=== PATIENT | female | born 1990 | race Caucasian/White ===

== ENCOUNTER 2020-07-13 08:49 | Inpatient (IN) | payer OTHER ==
[2020-07-13 09:52] VITALS: BMI 16.8
[2020-07-13] MEDS ORDERED: chlordiazePOXIDE HCL 25 MG CAPSULE PO PRN (12:11)
[2020-07-13] MEDS ORDERED: MENTHOL/PHENOL 1 EACH UD MM PRN (12:11)
[2020-07-13] MEDS ORDERED: MAGNESIUM CITRATE 300 ML BOTTLE PO PRN (12:11)
[2020-07-13] MEDS ORDERED: BISMUTH SUBSALICYLATE 262 MG/15 ML BTL PO PRN (12:11)
[2020-07-13] MEDS ORDERED: MAG HYDROX/AL HYDROX/SIMETH 30 ML UNIT-DOSE CUP PO PRN (12:11)
[2020-07-13] MEDS ORDERED: ACETAMINOPHEN 325 MG TABLET (FP) PO PRN (12:11)
[2020-07-13] MEDS ORDERED: NICOTINE POLACRILEX 2 MG GUM BUC PRN (12:11)
[2020-07-13] MEDS ORDERED: ONDANSETRON *ODT* 4 MG TABLET SL PRN (12:11)
[2020-07-13] MEDS ORDERED: MAGNESIUM HYDROX 2400MG/30ML ORAL SUSPENSION 30 ML CUP PO PRN (12:11)
[2020-07-13] MEDS ORDERED: ALBUTEROL SO4 HFA INHALER IH PRN (12:13)
[2020-07-13] MEDS: NICOTINE 21 MG/24 HOURS TOPICAL PATCH TD SCH (12:47)
[2020-07-13] MEDS: hydrOXYzine PAMOATE 25 MG CAPSULE (FP) PO SCH ×3 (13:09→22:06)
[2020-07-13 14:42] LABS: POTASSIUM 3.9 mmol/L (3.5-5.1)
[2020-07-13 14:47] LABS: ALBUMIN 3.7 g/dl (3.4-5.0); BLOOD UREA NITROGEN 6.7 mg/dL (7-18); CALCIUM 9.3 mg/dL (8.5-10.1)
[2020-07-13 14:49] LABS: CREATININE 0.6 mg/dL (0.55-1.3)
[2020-07-13 14:51] LABS: BILIRUBIN,TOTAL 0.4 mg/dL (0.2-1); TOT PROT 7.8 g/dl (6.4-8.2)
[2020-07-13 15:00] LABS: HEMATOCRIT 39.2 % (32.4-45.2); HEMOGLOBIN 12.8 GM/dL (10.7-15.3); MCH 29.4 pg (25.7-33.7); MCHC 32.7 g/dl (32.0-36.0); MEAN CELL VOLUME 89.9 fl (80-96); MEAN PLT VOLUME 8.1 fl (7.5-11.1); PLATELET COUNT 303 K/MM3 (134-434); RBC 4.36 M/mm3 (3.60-5.2); RDW 13.5 % (11.6-15.6); WHITE BLOOD COUNT 9.6 K/mm3 (4.0-10.0)
[2020-07-13] MEDS: chlordiazePOXIDE HCL 25 MG CAPSULE PO SCH ×2 (17:33→22:06)
[2020-07-13] MEDS: MELATONIN 5 MG TABLETS PO SCH (22:05)
[2020-07-13] MEDS: THIAMINE HCL 100 MG TABLET (FP) PO SCH (22:06)
[2020-07-14] MEDS ORDERED: MASKS NR ONE (05:24)
[2020-07-14] MEDS: hydrOXYzine PAMOATE 25 MG CAPSULE (FP) PO SCH ×5 (06:29→22:26)
[2020-07-14] MEDS: chlordiazePOXIDE HCL 25 MG CAPSULE PO SCH (06:29)
[2020-07-14] MEDS ORDERED: METHADONE HCL 10 MG TABLET ONE (09:24)
[2020-07-14] MEDS ORDERED: METHADONE HCL 40 MG DISPERSABLE TABLET ONE (09:25)
[2020-07-14] MEDS ORDERED: METHADONE HCL 40 MG DISPERSABLE TABLET PO SCH (10:00)
[2020-07-14] MEDS ORDERED: METHADONE 160 MG, METHADONE 10 MG PO SCH (10:00)
[2020-07-14] MEDS: NICOTINE 21 MG/24 HOURS TOPICAL PATCH TD SCH (10:47)
[2020-07-14] MEDS: PRENATAL VITAMINS W/ FOLIC ACID TABLET (FP) PO SCH (10:47)
[2020-07-14] MEDS: diazePAM 5 MG TABLET PO SCH ×3 (10:48→22:23)
[2020-07-14] MEDS: ACETAMINOPHEN 325 MG TABLET (FP) PO PRN ×2 (10:50→22:24)
[2020-07-14] MEDS: diazePAM 5 MG TABLET PO PRN (13:14)
[2020-07-14] MEDS: THIAMINE HCL 100 MG TABLET (FP) PO SCH (22:23)
[2020-07-14] MEDS: MELATONIN 5 MG TABLETS PO SCH (22:26)
[2020-07-15] MEDS ORDERED: METHADONE HCL 10 MG TABLET ONE ×2 (04:10→08:48)
[2020-07-15] MEDS ORDERED: METHADONE HCL 40 MG DISPERSABLE TABLET ONE ×2 (04:11→08:49)
[2020-07-15] MEDS ORDERED: chlordiazePOXIDE HCL 25 MG CAPSULE PO SCH (05:00)
[2020-07-15] MEDS: diazePAM 5 MG TABLET PO SCH ×4 (05:34→22:35)
[2020-07-15] MEDS: hydrOXYzine PAMOATE 25 MG CAPSULE (FP) PO SCH ×5 (05:34→22:38)
[2020-07-15] MEDS: METHADONE 160 MG, METHADONE 10 MG PO SCH (05:35)
[2020-07-15] MEDS ORDERED: METHADONE HCL 10 MG TABLET PO SCH (06:00)
[2020-07-15] MEDS ORDERED: METHADONE HCL 10 MG TABLET PO ONE (07:18)
[2020-07-15] MEDS ORDERED: METHADONE 160 MG, METHADONE 10 MG PO ONE (08:15)
[2020-07-15] MEDS: diazePAM 5 MG TABLET PO PRN ×2 (08:55→13:33)
[2020-07-15] MEDS: METHOCARBAMOL 500 MG TABLET PO PRN (09:23)
[2020-07-15] MEDS: PRENATAL VITAMINS W/ FOLIC ACID TABLET (FP) PO SCH (10:21)
[2020-07-15] MEDS: NICOTINE 21 MG/24 HOURS TOPICAL PATCH TD SCH (10:21)
[2020-07-15] MEDS: diazePAM 5 MG TABLET PO ONE (17:42)
[2020-07-15] MEDS: MELATONIN 5 MG TABLETS PO SCH (22:36)
[2020-07-15] MEDS: THIAMINE HCL 100 MG TABLET (FP) PO SCH (22:36)
[2020-07-16] MEDS ORDERED: chlordiazePOXIDE HCL 10 MG CAPSULE PO PRN
[2020-07-16] MEDS: diazePAM 5 MG TABLET PO PRN ×2 (00:54→09:10)
[2020-07-16] MEDS ORDERED: METHADONE HCL 10 MG TABLET ONE (04:05)
[2020-07-16] MEDS ORDERED: METHADONE HCL 40 MG DISPERSABLE TABLET ONE (04:06)
[2020-07-16] MEDS ORDERED: chlordiazePOXIDE HCL 10 MG CAPSULE PO SCH (05:00)
[2020-07-16] MEDS: diazePAM 5 MG TABLET PO SCH ×3 (06:18→22:26)
[2020-07-16] MEDS: METHADONE 160 MG, METHADONE 10 MG PO SCH (06:19)
[2020-07-16] MEDS: hydrOXYzine PAMOATE 25 MG CAPSULE (FP) PO SCH ×3 (06:19→14:22)
[2020-07-16] MEDS: ACETAMINOPHEN 325 MG TABLET (FP) PO PRN (06:21)
[2020-07-16] MEDS: METHOCARBAMOL 500 MG TABLET PO PRN ×2 (11:27→22:26)
[2020-07-16] MEDS: NICOTINE 21 MG/24 HOURS TOPICAL PATCH TD SCH (13:12)
[2020-07-16] MEDS: PRENATAL VITAMINS W/ FOLIC ACID TABLET (FP) PO SCH (14:18)
[2020-07-16] MEDS: MELATONIN 5 MG TABLETS PO SCH (22:26)
[2020-07-16] MEDS: THIAMINE HCL 100 MG TABLET (FP) PO SCH (22:26)
[2020-07-16] MEDS: IBUPROFEN 400 MG TABLET (FP) PO PRN (22:29)
[2020-07-17] MEDS ORDERED: METHADONE HCL 10 MG TABLET ONE (04:32)
[2020-07-17] MEDS ORDERED: METHADONE HCL 40 MG DISPERSABLE TABLET ONE (04:33)
[2020-07-17] MEDS ORDERED: chlordiazePOXIDE HCL 10 MG CAPSULE PO SCH (05:00)
[2020-07-17] MEDS: METHADONE 160 MG, METHADONE 10 MG PO SCH (05:56)
[2020-07-17] MEDS: diazePAM 5 MG TABLET PO SCH ×2 (05:58→17:42)
[2020-07-17] MEDS: diazePAM 5 MG TABLET PO PRN (09:13)
[2020-07-17] MEDS: NICOTINE 21 MG/24 HOURS TOPICAL PATCH TD SCH (09:16)
[2020-07-17] MEDS: PRENATAL VITAMINS W/ FOLIC ACID TABLET (FP) PO SCH (09:17)
[2020-07-17] MEDS: METHOCARBAMOL 500 MG TABLET PO PRN ×2 (09:17→17:41)
[2020-07-17] MEDS: IBUPROFEN 400 MG TABLET (FP) PO PRN ×2 (09:19→17:42)
[2020-07-17] MEDS: hydrOXYzine PAMOATE 25 MG CAPSULE (FP) PO PRN ×2 (12:42→22:42)
[2020-07-17] MEDS: THIAMINE HCL 100 MG TABLET (FP) PO SCH (22:45)
[2020-07-17] MEDS: MELATONIN 5 MG TABLETS PO SCH (22:45)
[2020-07-18] MEDS ORDERED: METHADONE HCL 10 MG TABLET ONE (04:22)
[2020-07-18] MEDS ORDERED: METHADONE HCL 40 MG DISPERSABLE TABLET ONE (04:22)
[2020-07-18] MEDS ORDERED: chlordiazePOXIDE HCL 10 MG CAPSULE PO ONE (05:00)
[2020-07-18] MEDS: METHADONE 160 MG, METHADONE 10 MG PO SCH (05:21)
[2020-07-18] MEDS: diazePAM 5 MG TABLET PO ONE (05:21)
[2020-07-18] MEDS: METHOCARBAMOL 500 MG TABLET PO PRN (05:22)
[2020-07-18 10:05] VITALS: BP 101/60; PULSE 65; TEMP 97.3
[2020-07-18] MEDS: NICOTINE 21 MG/24 HOURS TOPICAL PATCH TD SCH (10:06)
[2020-07-18] MEDS: PRENATAL VITAMINS W/ FOLIC ACID TABLET (FP) PO SCH (10:06)
== END 2020-07-18 12:26 | disposition other institution (70) | DRG 773 ==
LOC: YASAS 08:49 → Y6N 09:58
PROVIDERS: ADMIT Allergy & Immunology; ATTEND Allergy & Immunology
PROC: HZ2ZZZZ Detoxification Services for Substance Abuse Treatment (ICD-10-PCS; principal; 2020-07-13)
DX: F10.230 Alcohol dependence with withdrawal, uncomplicated (principal); F11.20 Opioid dependence, uncomplicated; F14.20 Cocaine dependence, uncomplicated; F13.20 Sedative, hypnotic or anxiolytic dependence, uncomplicated; F17.213 Nicotine dependence, cigarettes, with withdrawal; J45.909 Unspecified asthma, uncomplicated; Z86.19 Personal history of other infectious and parasitic diseases
CPT/HCPCS: 36415; 80053; 81025; 85027; 86780; 93005; 93010; C9803; U0003

== ENCOUNTER 2020-07-18 11:29 | Inpatient (IN) | payer OTHER ==
[2020-07-18] MEDS ORDERED: MENTHOL/PHENOL 1 EACH UD MM PRN (13:26)
[2020-07-18] MEDS ORDERED: hydrOXYzine PAMOATE 25 MG CAPSULE (FP) PO PRN (13:26)
[2020-07-18] MEDS ORDERED: MAGNESIUM HYDROX 2400MG/30ML ORAL SUSPENSION 30 ML CUP PO PRN (13:26)
[2020-07-18] MEDS ORDERED: LOPERAMIDE HCL 2 MG CAPSULE PO PRN (13:26)
[2020-07-18] MEDS ORDERED: guaiFENesin 200 MG/10 ML 10 ML UNIT-DOSE CUPS PO PRN (13:26)
[2020-07-18] MEDS ORDERED: P-EPHED 60MG/TRIPROLIDI 2.5MG TABLET PO PRN (13:26)
[2020-07-18] MEDS ORDERED: MAGNESIUM CITRATE 300 ML BOTTLE PO PRN (13:26)
[2020-07-18] MEDS ORDERED: MAG HYDROX/AL HYDROX/SIMETH 30 ML UNIT-DOSE CUP PO PRN (13:26)
[2020-07-18] MEDS: THIAMINE HCL 100 MG TABLET (FP) PO SCH (21:30)
[2020-07-18] MEDS: MELATONIN 5 MG TABLETS PO SCH (21:30)
[2020-07-19] MEDS ORDERED: METHADONE HCL 10 MG TABLET ONE (04:02)
[2020-07-19] MEDS ORDERED: METHADONE HCL 40 MG DISPERSABLE TABLET ONE (04:03)
[2020-07-19] MEDS ORDERED: METHADONE HCL 40 MG DISPERSABLE TABLET PO SCH (06:00)
[2020-07-19] MEDS: METHADONE 160 MG, METHADONE 10 MG PO SCH (07:29)
[2020-07-19] MEDS ORDERED: NICOTINE 7 MG/24 HOURS TOPICAL PATCH TD SCH (10:00)
[2020-07-19] MEDS: PRENATAL VITAMINS W/ FOLIC ACID TABLET (FP) PO SCH (10:11)
[2020-07-19] MEDS: NICOTINE 21 MG/24 HOURS TOPICAL PATCH TD SCH (10:11)
[2020-07-19] MEDS: ACETAMINOPHEN 325 MG TABLET (FP) PO PRN (21:43)
[2020-07-19] MEDS: MELATONIN 5 MG TABLETS PO SCH (21:44)
[2020-07-19] MEDS: THIAMINE HCL 100 MG TABLET (FP) PO SCH (21:44)
[2020-07-20] MEDS ORDERED: METHADONE HCL 10 MG TABLET ONE (05:18)
[2020-07-20] MEDS ORDERED: METHADONE HCL 40 MG DISPERSABLE TABLET ONE (05:19)
[2020-07-20] MEDS: METHADONE 160 MG, METHADONE 10 MG PO SCH (06:55)
[2020-07-20] MEDS ORDERED: hydrOXYzine PAMOATE 25 MG CAPSULE (FP) PO PRN (09:54)
[2020-07-20] MEDS: PRENATAL VITAMINS W/ FOLIC ACID TABLET (FP) PO SCH (10:35)
[2020-07-20] MEDS: NICOTINE 21 MG/24 HOURS TOPICAL PATCH TD SCH (10:36)
[2020-07-20] MEDS: ACETAMINOPHEN 325 MG TABLET (FP) PO PRN ×2 (10:38→21:27)
[2020-07-20] MEDS ORDERED: MASKS NR ONE (14:18)
[2020-07-20] MEDS: MELATONIN 5 MG TABLETS PO SCH (21:26)
[2020-07-20] MEDS: THIAMINE HCL 100 MG TABLET (FP) PO SCH (21:26)
[2020-07-20] MEDS: hydrOXYzine PAMOATE 25 MG CAPSULE (FP) PO PRN (21:27)
[2020-07-21] MEDS ORDERED: METHADONE HCL 10 MG TABLET ONE (03:58)
[2020-07-21] MEDS ORDERED: METHADONE HCL 40 MG DISPERSABLE TABLET ONE (03:58)
[2020-07-21] MEDS: METHADONE 160 MG, METHADONE 10 MG PO SCH (06:33)
[2020-07-21] MEDS: NICOTINE 21 MG/24 HOURS TOPICAL PATCH TD SCH (10:03)
[2020-07-21] MEDS: hydrOXYzine PAMOATE 25 MG CAPSULE (FP) PO PRN ×2 (10:04→21:22)
[2020-07-21] MEDS: PRENATAL VITAMINS W/ FOLIC ACID TABLET (FP) PO SCH (10:04)
[2020-07-21] MEDS: NICOTINE POLACRILEX 2 MG GUM BUC PRN (10:05)
[2020-07-21] MEDS: IBUPROFEN 400 MG TABLET (FP) PO PRN ×2 (10:05→21:23)
[2020-07-21] MEDS: THIAMINE HCL 100 MG TABLET (FP) PO SCH (21:22)
[2020-07-21] MEDS: MELATONIN 5 MG TABLETS PO SCH (21:22)
[2020-07-22] MEDS ORDERED: METHADONE HCL 10 MG TABLET ONE (03:17)
[2020-07-22] MEDS ORDERED: METHADONE HCL 40 MG DISPERSABLE TABLET ONE (03:18)
[2020-07-22] MEDS: METHADONE 160 MG, METHADONE 10 MG PO SCH (06:29)
[2020-07-22] MEDS: NICOTINE 21 MG/24 HOURS TOPICAL PATCH TD SCH (09:26)
[2020-07-22] MEDS: ACETAMINOPHEN 325 MG TABLET (FP) PO PRN (09:26)
[2020-07-22] MEDS: hydrOXYzine PAMOATE 25 MG CAPSULE (FP) PO PRN ×2 (09:26→21:24)
[2020-07-22] MEDS: NICOTINE POLACRILEX 2 MG GUM BUC PRN (09:27)
[2020-07-22] MEDS: PRENATAL VITAMINS W/ FOLIC ACID TABLET (FP) PO SCH (09:50)
[2020-07-22] MEDS: MELATONIN 5 MG TABLETS PO SCH (21:24)
[2020-07-22] MEDS: THIAMINE HCL 100 MG TABLET (FP) PO SCH (21:24)
[2020-07-22] MEDS: SUVOREXANT 10 MG TABLET PO PRN (21:25)
[2020-07-23] MEDS ORDERED: METHADONE HCL 40 MG DISPERSABLE TABLET ONE (03:11)
[2020-07-23] MEDS ORDERED: METHADONE HCL 10 MG TABLET ONE (03:11)
[2020-07-23] MEDS: METHADONE 160 MG, METHADONE 10 MG PO SCH (06:36)
[2020-07-23] MEDS: NICOTINE 21 MG/24 HOURS TOPICAL PATCH TD SCH (09:42)
[2020-07-23] MEDS: hydrOXYzine PAMOATE 25 MG CAPSULE (FP) PO PRN ×2 (09:43→21:45)
[2020-07-23] MEDS: NICOTINE POLACRILEX 2 MG GUM BUC PRN (09:43)
[2020-07-23] MEDS: PRENATAL VITAMINS W/ FOLIC ACID TABLET (FP) PO SCH (09:43)
[2020-07-23] MEDS: MELATONIN 5 MG TABLETS PO SCH (21:45)
[2020-07-23] MEDS: THIAMINE HCL 100 MG TABLET (FP) PO SCH (21:45)
[2020-07-23] MEDS: SUVOREXANT 10 MG TABLET PO PRN (21:46)
[2020-07-23] MEDS: IBUPROFEN 400 MG TABLET (FP) PO PRN (21:47)
[2020-07-24] MEDS ORDERED: METHADONE HCL 40 MG DISPERSABLE TABLET ONE (05:35)
[2020-07-24] MEDS ORDERED: METHADONE HCL 10 MG TABLET ONE (05:35)
[2020-07-24] MEDS: METHADONE 160 MG, METHADONE 10 MG PO SCH (06:03)
[2020-07-24] MEDS: PRENATAL VITAMINS W/ FOLIC ACID TABLET (FP) PO SCH (10:10)
[2020-07-24] MEDS: NICOTINE 21 MG/24 HOURS TOPICAL PATCH TD SCH (10:10)
[2020-07-24] MEDS: hydrOXYzine PAMOATE 25 MG CAPSULE (FP) PO PRN (10:10)
[2020-07-24] MEDS: NICOTINE POLACRILEX 2 MG GUM BUC PRN (10:11)
[2020-07-24] MEDS: IBUPROFEN 400 MG TABLET (FP) PO PRN ×2 (10:12→21:31)
[2020-07-24] MEDS: MELATONIN 5 MG TABLETS PO SCH (21:30)
[2020-07-24] MEDS: THIAMINE HCL 100 MG TABLET (FP) PO SCH (21:31)
[2020-07-24] MEDS: SUVOREXANT 10 MG TABLET PO PRN (21:32)
[2020-07-25] MEDS ORDERED: METHADONE HCL 10 MG TABLET ONE (05:30)
[2020-07-25] MEDS ORDERED: METHADONE HCL 40 MG DISPERSABLE TABLET ONE (05:30)
[2020-07-25] MEDS: METHADONE 160 MG, METHADONE 10 MG PO SCH (06:17)
[2020-07-25] MEDS: NICOTINE POLACRILEX 2 MG GUM BUC PRN ×3 (06:20→21:44)
[2020-07-25] MEDS ORDERED: METHADONE HCL 40 MG DISPERSABLE TABLET PO SCH (10:00)
[2020-07-25] MEDS: NICOTINE 21 MG/24 HOURS TOPICAL PATCH TD SCH (10:06)
[2020-07-25] MEDS: PRENATAL VITAMINS W/ FOLIC ACID TABLET (FP) PO SCH (10:06)
[2020-07-25] MEDS: hydrOXYzine PAMOATE 25 MG CAPSULE (FP) PO PRN ×3 (10:06→21:43)
[2020-07-25] MEDS: IBUPROFEN 400 MG TABLET (FP) PO PRN ×2 (10:07→21:44)
[2020-07-25] MEDS: THIAMINE HCL 100 MG TABLET (FP) PO SCH (21:41)
[2020-07-25] MEDS: MELATONIN 5 MG TABLETS PO SCH (21:41)
[2020-07-25] MEDS: SUVOREXANT 10 MG TABLET PO PRN (21:42)
[2020-07-26] MEDS ORDERED: METHADONE HCL 10 MG TABLET ONE (03:18)
[2020-07-26] MEDS ORDERED: METHADONE HCL 40 MG DISPERSABLE TABLET ONE (03:18)
[2020-07-26] MEDS: METHADONE 160 MG, METHADONE 10 MG PO SCH (06:11)
[2020-07-26] MEDS: NICOTINE 21 MG/24 HOURS TOPICAL PATCH TD SCH (10:21)
[2020-07-26] MEDS: PRENATAL VITAMINS W/ FOLIC ACID TABLET (FP) PO SCH (10:21)
[2020-07-26] MEDS: IBUPROFEN 400 MG TABLET (FP) PO PRN (10:22)
[2020-07-26] MEDS: hydrOXYzine PAMOATE 25 MG CAPSULE (FP) PO PRN ×2 (10:22→21:33)
[2020-07-26] MEDS: NICOTINE POLACRILEX 2 MG GUM BUC PRN (10:23)
[2020-07-26] MEDS: BENZOCAINE 20 % GEL TUBE MM PRN (10:59)
[2020-07-26] MEDS: SUVOREXANT 10 MG TABLET PO PRN (21:32)
[2020-07-26] MEDS: THIAMINE HCL 100 MG TABLET (FP) PO SCH (21:33)
[2020-07-26] MEDS: MELATONIN 5 MG TABLETS PO SCH (21:33)
[2020-07-27] MEDS ORDERED: METHADONE HCL 40 MG DISPERSABLE TABLET ONE (05:35)
[2020-07-27] MEDS ORDERED: METHADONE HCL 10 MG TABLET ONE (05:36)
[2020-07-27] MEDS: BENZOCAINE 20 % GEL TUBE MM PRN (06:18)
[2020-07-27] MEDS: IBUPROFEN 400 MG TABLET (FP) PO PRN ×3 (06:18→21:34)
[2020-07-27] MEDS: METHADONE 160 MG, METHADONE 10 MG PO SCH (06:18)
[2020-07-27] MEDS: PRENATAL VITAMINS W/ FOLIC ACID TABLET (FP) PO SCH (10:18)
[2020-07-27] MEDS: NICOTINE 21 MG/24 HOURS TOPICAL PATCH TD SCH (10:19)
[2020-07-27] MEDS: ACETAMINOPHEN 325 MG TABLET (FP) PO PRN (10:19)
[2020-07-27] MEDS: hydrOXYzine PAMOATE 25 MG CAPSULE (FP) PO PRN ×3 (10:19→21:35)
[2020-07-27] MEDS: METHOCARBAMOL 500 MG TABLET PO PRN ×3 (10:19→21:34)
[2020-07-27] MEDS: MELATONIN 5 MG TABLETS PO SCH (21:33)
[2020-07-27] MEDS: THIAMINE HCL 100 MG TABLET (FP) PO SCH (21:34)
[2020-07-27] MEDS: SUVOREXANT 10 MG TABLET PO PRN (21:35)
[2020-07-28] MEDS ORDERED: METHADONE HCL 40 MG DISPERSABLE TABLET ONE (05:22)
[2020-07-28] MEDS ORDERED: METHADONE HCL 10 MG TABLET ONE (05:23)
[2020-07-28] MEDS: METHADONE 160 MG, METHADONE 10 MG PO SCH (06:10)
[2020-07-28] MEDS: IBUPROFEN 400 MG TABLET (FP) PO PRN (06:11)
[2020-07-28] MEDS: PRENATAL VITAMINS W/ FOLIC ACID TABLET (FP) PO SCH (11:07)
[2020-07-28] MEDS: hydrOXYzine PAMOATE 25 MG CAPSULE (FP) PO PRN ×2 (11:07→21:18)
[2020-07-28] MEDS: METHOCARBAMOL 500 MG TABLET PO PRN ×2 (11:07→21:18)
[2020-07-28] MEDS: NICOTINE 21 MG/24 HOURS TOPICAL PATCH TD SCH (11:09)
[2020-07-28] MEDS: MELATONIN 5 MG TABLETS PO SCH (21:17)
[2020-07-28] MEDS: THIAMINE HCL 100 MG TABLET (FP) PO SCH (21:17)
[2020-07-28] MEDS: SUVOREXANT 10 MG TABLET PO PRN (21:18)
[2020-07-29] MEDS ORDERED: METHADONE HCL 40 MG DISPERSABLE TABLET ONE (03:20)
[2020-07-29] MEDS ORDERED: METHADONE HCL 10 MG TABLET ONE (03:20)
[2020-07-29] MEDS: METHADONE 160 MG, METHADONE 10 MG PO SCH (06:21)
[2020-07-29] MEDS: METHOCARBAMOL 500 MG TABLET PO PRN ×2 (10:15→21:34)
[2020-07-29] MEDS: hydrOXYzine PAMOATE 25 MG CAPSULE (FP) PO PRN ×2 (10:16→21:34)
[2020-07-29] MEDS: NICOTINE 21 MG/24 HOURS TOPICAL PATCH TD SCH (10:16)
[2020-07-29] MEDS: IBUPROFEN 400 MG TABLET (FP) PO PRN (10:16)
[2020-07-29] MEDS: PRENATAL VITAMINS W/ FOLIC ACID TABLET (FP) PO SCH (10:16)
[2020-07-29] MEDS: THIAMINE HCL 100 MG TABLET (FP) PO SCH (21:34)
[2020-07-29] MEDS: MELATONIN 5 MG TABLETS PO SCH (21:34)
[2020-07-29] MEDS: SUVOREXANT 10 MG TABLET PO PRN (21:35)
[2020-07-30] MEDS ORDERED: METHADONE HCL 10 MG TABLET ONE (03:14)
[2020-07-30] MEDS ORDERED: METHADONE HCL 40 MG DISPERSABLE TABLET ONE (03:14)
[2020-07-30] MEDS: METHADONE 160 MG, METHADONE 10 MG PO SCH (05:59)
[2020-07-30] MEDS: PRENATAL VITAMINS W/ FOLIC ACID TABLET (FP) PO SCH (10:37)
[2020-07-30] MEDS: hydrOXYzine PAMOATE 25 MG CAPSULE (FP) PO PRN ×3 (10:37→21:21)
[2020-07-30] MEDS: NICOTINE 21 MG/24 HOURS TOPICAL PATCH TD SCH (10:37)
[2020-07-30] MEDS: METHOCARBAMOL 500 MG TABLET PO PRN ×3 (10:39→21:21)
[2020-07-30] MEDS: ACETAMINOPHEN 325 MG TABLET (FP) PO PRN (10:39)
[2020-07-30] MEDS: ALBUTEROL SO4 HFA INHALER IH PRN (10:40)
[2020-07-30] MEDS: THIAMINE HCL 100 MG TABLET (FP) PO SCH (21:20)
[2020-07-30] MEDS: MELATONIN 5 MG TABLETS PO SCH (21:20)
[2020-07-31] MEDS ORDERED: METHADONE HCL 10 MG TABLET ONE (05:48)
[2020-07-31] MEDS ORDERED: METHADONE HCL 40 MG DISPERSABLE TABLET ONE (05:48)
[2020-07-31] MEDS: METHADONE 160 MG, METHADONE 10 MG PO SCH (06:15)
[2020-07-31] MEDS: hydrOXYzine PAMOATE 25 MG CAPSULE (FP) PO PRN ×3 (09:57→21:32)
[2020-07-31] MEDS: NICOTINE 21 MG/24 HOURS TOPICAL PATCH TD SCH (09:57)
[2020-07-31] MEDS: METHOCARBAMOL 500 MG TABLET PO PRN ×3 (09:57→21:32)
[2020-07-31] MEDS: PRENATAL VITAMINS W/ FOLIC ACID TABLET (FP) PO SCH (09:57)
[2020-07-31] MEDS: MELATONIN 5 MG TABLETS PO SCH (21:32)
[2020-07-31] MEDS: SUVOREXANT 10 MG TABLET PO PRN (21:32)
[2020-07-31] MEDS: THIAMINE HCL 100 MG TABLET (FP) PO SCH (21:32)
[2020-08-01] MEDS ORDERED: METHADONE HCL 10 MG TABLET ONE (03:25)
[2020-08-01] MEDS ORDERED: METHADONE HCL 40 MG DISPERSABLE TABLET ONE (03:25)
[2020-08-01] MEDS: METHADONE 160 MG, METHADONE 10 MG PO SCH (06:15)
[2020-08-01] MEDS: PRENATAL VITAMINS W/ FOLIC ACID TABLET (FP) PO SCH (10:19)
[2020-08-01] MEDS: NICOTINE 21 MG/24 HOURS TOPICAL PATCH TD SCH (10:19)
[2020-08-01] MEDS: METHOCARBAMOL 500 MG TABLET PO PRN ×2 (10:20→16:38)
[2020-08-01] MEDS: hydrOXYzine PAMOATE 25 MG CAPSULE (FP) PO PRN ×3 (10:20→21:13)
[2020-08-01] MEDS: MELATONIN 5 MG TABLETS PO SCH (21:13)
[2020-08-01] MEDS: THIAMINE HCL 100 MG TABLET (FP) PO SCH (21:13)
[2020-08-01] MEDS: SUVOREXANT 10 MG TABLET PO PRN (21:15)
[2020-08-02] MEDS ORDERED: METHADONE HCL 10 MG TABLET ONE (05:33)
[2020-08-02] MEDS ORDERED: METHADONE HCL 40 MG DISPERSABLE TABLET ONE (05:33)
[2020-08-02] MEDS: METHADONE 160 MG, METHADONE 10 MG PO SCH (05:57)
[2020-08-02] MEDS: PRENATAL VITAMINS W/ FOLIC ACID TABLET (FP) PO SCH (11:47)
[2020-08-02] MEDS: ACETAMINOPHEN 325 MG TABLET (FP) PO PRN (11:47)
[2020-08-02] MEDS: METHOCARBAMOL 500 MG TABLET PO PRN ×2 (11:47→21:40)
[2020-08-02] MEDS: NICOTINE 21 MG/24 HOURS TOPICAL PATCH TD SCH (11:47)
[2020-08-02] MEDS: hydrOXYzine PAMOATE 25 MG CAPSULE (FP) PO PRN ×2 (16:39→21:41)
[2020-08-02] MEDS: SUVOREXANT 10 MG TABLET PO PRN (21:40)
[2020-08-02] MEDS: THIAMINE HCL 100 MG TABLET (FP) PO SCH (21:41)
[2020-08-02] MEDS: MELATONIN 5 MG TABLETS PO SCH (21:41)
[2020-08-03] MEDS ORDERED: METHADONE HCL 40 MG DISPERSABLE TABLET ONE (05:36)
[2020-08-03] MEDS ORDERED: METHADONE HCL 10 MG TABLET ONE (05:37)
[2020-08-03] MEDS: METHOCARBAMOL 500 MG TABLET PO PRN ×2 (05:56→21:13)
[2020-08-03] MEDS: METHADONE 160 MG, METHADONE 10 MG PO SCH (05:56)
[2020-08-03] MEDS: ACETAMINOPHEN 325 MG TABLET (FP) PO PRN (09:59)
[2020-08-03] MEDS: hydrOXYzine PAMOATE 25 MG CAPSULE (FP) PO PRN ×2 (09:59→21:13)
[2020-08-03] MEDS: PRENATAL VITAMINS W/ FOLIC ACID TABLET (FP) PO SCH (09:59)
[2020-08-03] MEDS: NICOTINE 21 MG/24 HOURS TOPICAL PATCH TD SCH (09:59)
[2020-08-03] MEDS: ALBUTEROL SO4 HFA INHALER IH PRN (10:01)
[2020-08-03] MEDS: THIAMINE HCL 100 MG TABLET (FP) PO SCH (21:13)
[2020-08-03] MEDS: MELATONIN 5 MG TABLETS PO SCH (21:13)
[2020-08-03] MEDS: SUVOREXANT 10 MG TABLET PO PRN (21:14)
[2020-08-04] MEDS ORDERED: METHADONE HCL 40 MG DISPERSABLE TABLET ONE (05:35)
[2020-08-04] MEDS ORDERED: METHADONE HCL 10 MG TABLET ONE (05:35)
[2020-08-04] MEDS: METHADONE 160 MG, METHADONE 10 MG PO SCH (06:29)
[2020-08-04] MEDS: METHOCARBAMOL 500 MG TABLET PO PRN (06:30)
[2020-08-04 06:45] VITALS: BP 113/53; PULSE 66; TEMP 97.9
[2020-08-04] MEDS: hydrOXYzine PAMOATE 25 MG CAPSULE (FP) PO PRN (09:19)
[2020-08-04] MEDS: PRENATAL VITAMINS W/ FOLIC ACID TABLET (FP) PO SCH (09:19)
[2020-08-04] MEDS: NICOTINE 21 MG/24 HOURS TOPICAL PATCH TD SCH (09:19)
== END 2020-08-04 09:41 | disposition home or self-care (01) | DRG 772 ==
LOC: YASAS 11:29 → Y3E 11:30 → Y3W 07-23 15:06
PROVIDERS: ADMIT Allergy & Immunology; ATTEND Allergy & Immunology
PROC: HZ42ZZZ Group Counseling for Substance Abuse Treatment, Cognitive-Behavioral (ICD-10-PCS; principal; 2020-07-18)
DX: F10.20 Alcohol dependence, uncomplicated (principal); F11.20 Opioid dependence, uncomplicated; F14.20 Cocaine dependence, uncomplicated; F13.20 Sedative, hypnotic or anxiolytic dependence, uncomplicated; F12.20 Cannabis dependence, uncomplicated; F17.210 Nicotine dependence, cigarettes, uncomplicated; F19.282 Other psychoactive substance dependence with psychoactive substance-induced sleep disorder; F19.280 Other psychoactive substance dependence with psychoactive substance-induced anxiety disorder; J45.909 Unspecified asthma, uncomplicated; B18.2 Chronic viral hepatitis C; K08.89 Other specified disorders of teeth and supporting structures; Z91.410 Personal history of adult physical and sexual abuse; Z56.0 Unemployment, unspecified; Z59.0 Homelessness; Z91.013 Allergy to seafood